=== PATIENT | male | born 1970 | race Asian ===

== ENCOUNTER → 2018-07-13 | Outpatient (CLI) | payer OTHER ==
--- NOTE | 2018-07-13 16:49 | PCVCIMAG ---
APPROVED REPORT Study performed: 07/13/2018 15:03:17 Exam: Stress Echocardiogram Indication: Dyspnea , Palpitations Patient Location: Echo lab Stress Nurse: Starla Somers RN Room #: 2 Status: routine Ht: 5 ft 10 in HR: 85 bpm BP: 112/80 mmHg Rhythm: NSR Medical History Medical History: Palpitations,dyspnea Previous Cardiac Procedures: none Pretest Chest Pain Characteristics: No chest pain Exercise History: Physically active Procedure The patient underwent an Exercise Stress Test using the Jesús Protocol. Blood pressure, heart rate, and EKG were monitored. An Echocardiogram was performed by laboratory technician in four stages in quad fashion. At peak stress, four selected images were obtained and placed side by side with resting images for comparison. Stress Test Details Stress Test: Exercise stress testing was performed using a Jesús protocol. HR Resting HR: 85 bpmMax Heart Rate (APMHR): 173 bpm Max HR Achieved: 173 bpmTarget HR (85% APMHR): 147 bpm % of APMHR: 100 Recovery HR: 108 bpm HR response to stress: Normal HR response to stress BP Resting BP: 112/80 mmHg Max BP: 162/80 mmHg Recovery BP: 112/68 mmHg BP response to stress: Normal blood pressure response to stress. ECG Resting ECG: Sinus Rhythm, nonspecific ST-T abnormalities Stress ECG: Sinus Rhythm, nonspecific ST-T abnormalities ST Change: Non-ischemic Maximum ST Deviation: 0 mm Arrhythmia: Rare PVC Recovery ECG: Sinus Rhythm, NSSTT changes Recovery ST Change: Non-ischemic Recovery ST Deviation: 0 mm Recovery Arrhythmia: None Clinical Reason for Termination: Maximal effort Stress Symptoms: none Exercise duration: 13 min 44 sec Highest Stage Achieved: Stage 5: 5.0 mph at 18% grade. Exercise capacity: 17.5 METs Overall Exercise Capacity for Age: Excellent Scale: Active Angina Score: None No complications. Stress ECG Conclusion The patient exercised according to the JESÚS protocol for 13:44 mins; achieving a work level of 17.5 METS. The resting heart rate of 85 bpm ginny to a maximum heart rate of 173 bpm. This value represent 100% of the maximal, age-predicted heart rate. The resting blood pressure of 112/80 mmHg, ginny to a maximum blood pressure of 162/80 mmHg. The exercise test was stopped due to fatigue and dyspnea. Stovall Treadmill Score is 13.0 which is Low risk. Pre-Stress Echo The resting Echocardiogram showed normal left ventricular contractility with an estimated Ejection Fraction of about 55-60%. Normal wall motion in all segments on baseline images. Post-Stress Echo The stress Echocardiogram showed normal left ventricular contractility with an estimated Ejection Fraction of about 65-70%. Normal augmentation of wall motion in all segments on post stress images. Clinical No clinical or ECG evidence for ischemia. Conclusion Clinical Response: Non-ischemic Exercise Capacity: Superior Stress ECG Response: Non-ischemic Stress Echo Images: Non-ischemic No clinical, EKG or echocardiographic evidence for ischemia. No echocardiographic evidence for exercise induced ischemia. Normal stress echocardiogram with maximal exercise stress. <Conclusion> No clinical, EKG or echocardiographic evidence for ischemia. No echocardiographic evidence for exercise induced ischemia. Normal stress echocardiogram with maximal exercise stress.
== END | disposition home or self-care (01) ==
LOC: PCVCIMAG 15:24
PROVIDERS: ATTEND Internal Medicine
DX: R00.2 Palpitations (principal); R06.09 Other forms of dyspnea; R93.1 Abnormal findings on diagnostic imaging of heart and coronary circulation
CPT/HCPCS: 93325; 93351